=== PATIENT | female | born 1975 | race Caucasian/White ===

== ENCOUNTER → 2019-06-17 | Outpatient (CLI) | payer OTHER ==
[~2019-06-17] MED LIST: MULT-658 PO; imitrex PO
[2019-06-17 16:31] LABS: BASOPHILS # (AUTO) 0.03 x10^3/uL (0-0.1); BASOPHILS % (AUTO) 0 % (0-1); EOSINOPHILS # (AUTO) 0.11 x10^3/uL (0-0.4); EOSINOPHILS % (AUTO) 1 % (1-7); LYMPHOCYTES # (AUTO) 2.43 x10^3/uL (1-3.4); LYMPHOCYTES % (AUTO) 29 % (22-44); MD NO; MEAN CORPUSCULAR HEMOGLOBIN 29.5 pg (27.0-34.8); MEAN CORPUSCULAR HGB CONC 33.4 g/dL (32.4-35.8); MEAN CORPUSCULAR VOLUME 88.6 fL (80-100); MEAN PLATELET VOLUME 8.4 fL (7.4-10.4); MONOCYTES # (AUTO) 0.55 x10^3/uL (0.2-0.8); MONOCYTES % (AUTO) 7 % (2-9); NEUTROPHILS # (AUTO) 5.33 x10^3/uL (1.8-6.8); NEUTROPHILS % (AUTO) 63 % (42-75); PLATELET COUNT 329 x10^3/uL (130-400); RED BLOOD COUNT 4.55 x10^6/uL (3.82-5.3); RED CELL DISTRIBUTION WIDTH 14.4 % (9.6-15.2)
[2019-06-17 16:31] LABS: MICROSCOPIC AUTO
[2019-06-17 16:32] LABS: CULTURE INDICATED? YES
[2019-06-17 16:41] LABS: ALANINE AMINOTRANSFERASE 48 U/L (12-78); ALBUMIN 3.8 g/dL (3.4-5.0); ANION GAP 5 mmol/L (5-15); CALCIUM 8.9 mg/dL (8.5-10.1); CHLORIDE 106 mmol/L (98-107); CREATININE 0.72 mg/dL (0.55-1.02)
[2019-06-17 16:46] LABS: ALKALINE PHOSPHATASE 126 U/L (45-117); BILIRUBIN,TOTAL 0.1 mg/dL (0.2-1.0); TOTAL PROTEIN 8.1 g/dL (6.4-8.2)
== END | disposition home or self-care (01) ==
LOC: STAR 15:38
PROVIDERS: ATTEND Obstetrics & Gynecology
DX: Z01.818 Encounter for other preprocedural examination (principal); N92.0 Excessive and frequent menstruation with regular cycle; N94.6 Dysmenorrhea, unspecified
CPT/HCPCS: 36415; 80053; 81001; 84702; 85025; 87086

== ENCOUNTER 2019-06-26 09:58 | Day surgery (SDC) | payer OTHER ==
[~2019-06-26] VITALS: Ht 165.1 cm; Wt 72.4 kg
[~2019-06-26 09:58] MED LIST changes: +BUPIVACAINE/PF-EPI 0.25% 1:200K ONE; +FLUORESCEIN SODIUM 500 MG/5 ML ONE
[2019-06-26] MEDS ORDERED: LACTATED RINGERS 1,000 ML IV SCH (10:06)
[2019-06-26 10:15] VITALS: BP 124/68
[2019-06-26] MEDS ORDERED: LIDOCAINE-MPF 2%, 2ML ONE (10:23)
[2019-06-26] MEDS ORDERED: LIDOCAINE-MPF 1%, 2ML INFIL ONE (10:30)
[2019-06-26] MEDS ORDERED: SCOPOLAMINE 1MG PATCH TD SCH (10:30)
[2019-06-26] MEDS ORDERED: ACETAMINOPHEN 500 MG TABLET PO ONE (10:30)
[2019-06-26] MEDS ORDERED: CHLORHEXIDINE 15 ML UDC MM ONE (10:30)
[2019-06-26] MEDS ORDERED: GABAPENTIN 300 MG CAPSULE PO ONE (10:30)
[2019-06-26 10:55] LABS: HCG UR SG 1.022 (1.003-1.030)
[2019-06-26] MEDS ORDERED: MIDAZOLAM 1 MG/ML, 2ML ONE (11:43)
[2019-06-26] MEDS ORDERED: FENTANYL PF 250 MCG/5ML ONE ×2 (11:44→13:37)
[2019-06-26] MEDS ORDERED: KETOROLAC 30 MG/1 ML ONE (12:11)
[2019-06-26] MEDS ORDERED: HYDROmorphone 1 MG/ML, 1ML INJ IVPush PRN (12:30)
[2019-06-26] MEDS ORDERED: FENTANYL PF 100 MCG/2ML IV PRN (12:30)
[2019-06-26] MEDS ORDERED: HALOPERIDOL 5 MG/ML IV PRN (12:30)
[2019-06-26] MEDS ORDERED: hydrALAzine 20 MG/ML, 1ML IV PRN (12:30)
[2019-06-26] MEDS ORDERED: LABETALOL 5MG/ML, 20ML IV PRN (12:30)
[2019-06-26] MEDS ORDERED: morphine SULFATE 10 MG/ML, 1ML IVPush PRN (12:30)
[2019-06-26] MEDS ORDERED: OXYcodone 5 MG/5 ML ORAL.SOL UDC PO PRN (12:30)
[2019-06-26] MEDS ORDERED: PROMETHAZINE 25 MG/ML, 1ML IVPush PRN (12:30)
[2019-06-26] MEDS ORDERED: BUPIVACAINE/PF-EPI 0.25% 1:200K INFIL ONE (12:34)
[2019-06-26] MEDS ORDERED: INDIGO CARMINE 0.8%, 5ML ONE (14:11)
[2019-06-26] MEDS ORDERED: GLYCOPYRROLATE 0.2MG/1ML, 5ML ONE (14:34)
[2019-06-26] MEDS ORDERED: PROPOFOL 10 MG/ML, 20ML ONE (14:34)
[2019-06-26] MEDS ORDERED: DEXAMETHASONE 4 MG/ML, 1ML ONE (14:34)
[2019-06-26] MEDS ORDERED: CEFAZOLIN 1,000 MG ONE (14:34)
[2019-06-26] MEDS ORDERED: NEOSTIGMINE 1 MG/ML, 10ML ONE (14:34)
[2019-06-26] MEDS ORDERED: ROCURONIUM 10MG/ML,5ML ONE (14:34)
[2019-06-26] MEDS ORDERED: ONDANSETRON 2MG/ML, 2ML ONE (14:34)
[2019-06-26] MEDS ORDERED: OXYcodone 5 MG/5 ML ORAL.SOL UDC ONE (14:54)
[2019-06-26] MEDS ORDERED: MEPERIDINE/PF 50 MG/ML ONE (14:54)
[2019-06-26] MEDS: MEPERIDINE/PF 25MG/0.5ML IVPush PRN ×2 (14:58→15:15)
[2019-06-26] MEDS ORDERED: POTASSIUM CHLORIDE 20 MEQ in D5%-0.45% NACL 1,000 ML IV SCH (19:30)
[2019-06-26 19:32] VITALS: BP 100/66
[2019-06-26] MEDS ORDERED: HYDROcodone/APAP 7.5-325MG/15ML UDC PO PRN (20:00)
[2019-06-26] MEDS ORDERED: ONDANSETRON 2MG/ML, 2ML IV PRN (20:00)
[2019-06-26] MEDS ORDERED: MEPERIDINE/PF 100 MG/ML IM PRN (20:00)
[2019-06-26] MEDS ORDERED: IBUPROFEN 600 MG TABLET PO SCH (21:00)
[2019-06-26] MEDS ORDERED: DOCUSATE 100 MG CAPSULE PO SCH (21:00)
[2019-06-26] MEDS ORDERED: SIMETHICONE 80 MG CHEW TAB PO SCH (21:00)
== END 2019-06-26 20:30 | disposition home or self-care (01) ==
LOC: OUT 09:58 → 4NE 18:37 → OUT 20:30
PROVIDERS: ATTEND Obstetrics & Gynecology
DX: N94.6 Dysmenorrhea, unspecified (principal); N92.0 Excessive and frequent menstruation with regular cycle; N72 Inflammatory disease of cervix uteri; R10.2 Pelvic and perineal pain; G43.109 Migraine with aura, not intractable, without status migrainosus; Z79.899 Other long term (current) drug therapy; Z98.51 Tubal ligation status; Z98.890 Other specified postprocedural states; Z83.3 Family history of diabetes mellitus; Z82.49 Family history of ischemic heart disease and other diseases of the circulatory system; Z80.41 Family history of malignant neoplasm of ovary
CPT/HCPCS: 36415; 58552; 81025; 86850; 86900; 86923; 88302; 88307; J0690; J1100; J1885; J2175; J2250; J2405; J2704; J2710; J3010; G0378

== ENCOUNTER → 2020-04-13 | Outpatient (CLI) | payer OTHER ==
[~2020-04-13] MED LIST changes: -BUPIVACAINE/PF-EPI 0.25% 1:200K ONE; -FLUORESCEIN SODIUM 500 MG/5 ML ONE
== END | disposition home or self-care (01) ==
LOC: CFH 13:44
PROVIDERS: ATTEND Family Medicine
DX: R31.9 Hematuria, unspecified (principal); R10.31 Right lower quadrant pain; R10.9 Unspecified abdominal pain
CPT/HCPCS: 74176